=== PATIENT | male | born 1990 | race American Indian/Alaskan Native ===

== ENCOUNTER 2017-11-16 23:37 | Emergency (ER) | payer OTHER ==
[2017-11-17 00:18] VITALS: BP 118/59
[2017-11-17] MEDS ORDERED: ULTRAM PO ONE (05:37)
--- NOTE | 2017-11-17 05:41 | Emergency Department Report ---
ED ENT HPI - General Chief complaint: Dental/Oral Stated complaint: JAW PAIN Time Seen by Provider: 11/17/17 05:19 Source: patient Mode of arrival: Ambulatory Limitations: No Limitations - History of Present Illness Initial comments: This is a 27-year-old male presents with left jaw pain from toothache. Patient reports had similar symptoms last year symptoms went away. He never did follow- up with a dentist. Yesterday symptoms returned he went and purchased Orajel and Aleve with no improvement of symptoms. Patient reports pain is on the left lower side on his back tooth. He noticed some swelling around tooth and pain is 10 out of 10 on pain scale and non-radiating. Denies jaw swelling, ear pain , difficulty swallowing, or shortness of breath. MD complaint: tooth pain -: days(s) (1 day) Location: tooth # (17) Severity: severe Severity scale (0 -10): 10 Quality: constant, other (throbbing) Consistency: constant Improves with: none Worsens with: eating Context- Dental: history of dental caries, poor dental care Associated Symptoms: toothache. denies: fever, cough, gum swelling, pain with swallowing, sore throat, tinnitus, hearing loss, discharge from ear, rhinorrhea - Related Data Previous Rx's Medication Instructions Recorded Last Taken Type Butalb/Acetamin/Caff 50-325-40 1 tab PO Q8HR PRN #10 tablet 01/26/15 Unknown Rx [Fioricet] Clindamycin HCl 300 mg PO TID #21 capsule 11/17/17 Unknown Rx traMADol [Ultram 50 MG tab] 50 mg PO Q6HR PRN #15 tablet 11/17/17 Unknown Rx Allergies Allergy/AdvReac Type Severity Reaction Status Date / Time No Known Allergies Allergy Verified 01/26/15 15:06 ED Dental HPI - General Chief complaint: Dental/Oral Stated complaint: JAW PAIN Time Seen by Provider: 11/17/17 05:19 Source: patient Mode of arrival: Ambulatory Limitations: No Limitations - Related Data Previous Rx's Medication Instructions Recorded Last Taken Type Butalb/Acetamin/Caff 50-325-40 1 tab PO Q8HR PRN #10 tablet 01/26/15 Unknown Rx [Fioricet] Clindamycin HCl 300 mg PO TID #21 capsule 11/17/17 Unknown Rx traMADol [Ultram 50 MG tab] 50 mg PO Q6HR PRN #15 tablet 11/17/17 Unknown Rx Allergies Allergy/AdvReac Type Severity Reaction Status Date / Time No Known Allergies Allergy Verified 01/26/15 15:06 ED Review of Systems ROS: Stated complaint: JAW PAIN Other details as noted in HPI Constitutional: denies: chills, fever ENT: dental pain (left lower side #17). denies: ear pain, throat pain, congestion Respiratory: denies: cough, shortness of breath, wheezing Cardiovascular: denies: chest pain, palpitations Gastrointestinal: denies: abdominal pain, nausea, diarrhea Neurological: denies: headache, weakness, paresthesias Psychiatric: denies: anxiety, depression ED Past Medical Hx - Past Medical History Previous Medical History?: No Hx Hypertension: No Hx Congestive Heart Failure: No Hx Diabetes: No Hx Headaches / Migraines: Yes Hx Asthma: No Hx COPD: No - Surgical History Past Surgical History?: Yes Additional Surgical History: hernia repair 2013 - Social History Smoking Status: Current Every Day Smoker Substance Use Type: None - Medications Home Medications: Home Medications Medication Instructions Recorded Confirmed Last Taken Type Butalb/Acetamin/Caff 50-325-40 1 tab PO Q8HR PRN #10 tablet 01/26/15 Unknown Rx [Fioricet] Clindamycin HCl 300 mg PO TID #21 capsule 11/17/17 Unknown Rx traMADol [Ultram 50 MG tab] 50 mg PO Q6HR PRN #15 tablet 11/17/17 Unknown Rx ED Physical Exam - General Limitations: No Limitations - ENT ENT exam: Present: mucous membranes moist, other (black discoloration at #17, mucosa swelling and erythema) - Respiratory Respiratory exam: Present: normal lung sounds bilaterally. Absent: respiratory distress - Cardiovascular Cardiovascular Exam: Present: regular rate, normal rhythm, normal heart sounds. Absent: systolic murmur, diastolic murmur, rubs, gallop - GI/Abdominal GI/Abdominal exam: Present: soft, normal bowel sounds - Neurological Exam Neurological exam: Present: alert, oriented X3 - Psychiatric Psychiatric exam: Present: normal affect, normal mood - Skin Skin exam: Present: warm, dry, intact, normal color. Absent: rash ED Course Vital Signs 11/17/17 00:16 Temperature 98.8 F Pulse Rate 62 Respiratory 17 Rate Blood Pressure 118/59 O2 Sat by Pulse 98 Oximetry ED Medical Decision Making - Medical Decision Making This is a 27-year-old male that presents with left side jaw pain from lower tooth ache that started yesterday. Patient is stable and was examined by me. Vitals are stable. Given tramadol once in ER. Susceptible of dental dental caries. Discharged home with clindamycin and tramadol. Discussed plan with patient. He agreed with ER plan. Follow up with dentist in 2-3 days. Critical care attestation.: If time is entered above; I have spent that time in minutes in the direct care of this critically ill patient, excluding procedure time. ED Disposition Clinical Impression: Dental caries, Tooth ache Disposition: TO HOME OR SELFCARE Is pt being admited?: No Does the pt Need Aspirin: No Condition: Stable Instructions: Toothache (ED), Dental Caries (ED) Additional Instructions: Complete all days of clindamycin as prescribed for 14 days. Follow up with a Dentist in 24-72 hours. Prescriptions: Clindamycin HCl 300 mg PO TID #21 capsule traMADol [Ultram 50 MG tab] 50 mg PO Q6HR PRN #15 tablet PRN Reason: Pain Referrals: [facility] [Outside] - 3-5 Days [facility] [Outside] - 3-5 Days [facility] [Outside] - 3-5 Days [facility] [Outside] - 3-5 Days Time of Disposition: 05:45 Print Language: MALAY
== END 2017-11-17 05:52 | disposition home or self-care (01) ==
LOC: ED 23:37
DX: K02.9 Dental caries, unspecified (principal); F17.200 Nicotine dependence, unspecified, uncomplicated; G43.909 Migraine, unspecified, not intractable, without status migrainosus
CPT/HCPCS: 99282